=== PATIENT | male | born 1955 | race Caucasian/White ===

== ENCOUNTER 2018-07-02 07:51 | Day surgery (SDC) | payer OTHER ==
[2018-07-02] MEDS ORDERED: PROPOFOL 40 ML (09:45)
[2018-07-02] MEDS ORDERED: LIDOCAINE 100 MG SYRINGE (09:45)
== END 2018-07-02 12:14 | disposition home or self-care (01) ==
LOC: GIL 07:51
DX: Z12.11 Encounter for screening for malignant neoplasm of colon (principal); K57.90 Diverticulosis of intestine, part unspecified, without perforation or abscess without bleeding; K64.8 Other hemorrhoids; D12.6 Benign neoplasm of colon, unspecified; Z86.718 Personal history of other venous thrombosis and embolism; J44.9 Chronic obstructive pulmonary disease, unspecified; F17.200 Nicotine dependence, unspecified, uncomplicated
CPT/HCPCS: 45380